=== PATIENT | female | born 1985 | race American Indian/Alaskan Native ===

== ENCOUNTER 2019-09-29 21:52 | Emergency (ER) | payer MEDICAID ==
[2019-09-29] MEDS ORDERED: HALOPERIDOL LACTATE 5 MG/1 ML INJ IM ONE (22:11)
[2019-09-29] MEDS ORDERED: HALOPERIDOL LACTATE 5 MG/1 ML INJ ONE (22:14)
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
[2019-09-29] MEDS ORDERED: LORazepam 2 MG/ML VIAL IM ONE (22:20)
[2019-09-29 22:53] LABS: Basophils % (Auto) 0.4 % (0.0-1.8); Eosinophils # (Auto) 0.1 K/mm3 (0.0-0.4); Eosinophils % (Auto) 0.5 % (0.0-4.3); Hematocrit 36.5 % (30.3-42.9); Hemoglobin 12.1 gm/dl (10.1-14.3); Lymphocytes # (Auto) 2.7 K/mm3 (1.2-5.4); Lymphocytes % (Auto) 25.6 % (13.4-35.0); Mean Corpuscular HGB Conc 33 % (30-34); Mean Corpuscular Volume 86 fl (79-97); Monocytes # (Auto) 0.6 K/mm3 (0.0-0.8); Monocytes % (Auto) 5.8 % (0.0-7.3); Platelet Count 472 K/mm3 (140-440); Red Blood Count 4.25 M/mm3 (3.65-5.03); Red Cell Distribution Width 16.4 % (13.2-15.2)
[2019-09-29 23:06] LABS: Alanine Aminotransferase 34 units/L (7-56); Albumin 4.7 g/dL (3.9-5); BUN/Creatinine Ratio 13; Blood Urea Nitrogen 9 mg/dL (7-17); Calcium 8.9 mg/dL (8.4-10.2); Hemolysis Index 0
[2019-09-30] MEDS ORDERED: SODIUM CHLORIDE 0.9% 1000 ML 1,000 ML IV ONE ×2 (03:00)
[2019-09-30 08:07] VITALS: BP 122/72
== END 2019-09-30 08:10 | disposition home or self-care (01) ==
LOC: ED 21:52
DX: G93.41 Metabolic encephalopathy (principal); F10.120 Alcohol abuse with intoxication, uncomplicated; R41.82 Altered mental status, unspecified
CPT/HCPCS: 36415; 80053; 85025; 96360; 96372; 99291; J1630; J7030; 80320; G0480